=== PATIENT | female | born 1990 | race African-American/Black ===

== ENCOUNTER 2016-12-31 12:19 | Emergency (ER) | payer MEDICAID ==
[~2016-12-31] VITALS: Ht 170.2 cm; Wt 83.6 kg
[~2016-12-31 12:19] MED LIST: DICL50TA2 PO; METH750T2 PO
[2016-12-31 12:24] VITALS: BP 126/76; PULSE 80; RESP 14; TEMP 98; O2SAT 100
--- NOTE | 2016-12-31 13:57 | PD ---
HPI Chief Complaint: Medical Clearance Time Seen by Provider: 13:56 Travel History International Travel<30 days: No Contact w/Intl Traveler<30days: No Traveled to known affect area: No History of Present Illness HPI 26-year-old female presents to the emergency department requesting a test. Last menstrual period was November 26. She has no other medical complaints. She denies fever, chills, nausea, vomiting. Denies chest pain, shortness breath, abdominal pain, change in urine or stool. She denies vaginal discharge, odor, itch, lesions. No known allergies. No other modifying factors or associated signs and symptoms. History Past Medical Histgory LMP: 11/29/2016 Menopausal: No Social History Alcohol Use: No Tobacco Use: Yes Allergies-Medications (Allergen,Severity, Reaction): Coded Allergies: No Known Allergies (Verified , 08/04/15) Reported Meds & Prescriptions Reported Meds & Active Scripts Active Robaxin (Methocarbamol) 750 Mg Tab 750 Mg PO TID PRN Diclofenac Potassium 50 mg (Diclofenac Potassium) 50 Mg Tab 1 Tab PO Q8 PRN 7 Days Review of Systems Except as stated in HPI: all other systems reviewed are Neg Physical Exam Narrative GENERAL: Well-nourished, well-developed female patient, in no acute distress SKIN: Warm and dry. HEAD: Atraumatic. Normocephalic. EYES: Pupils equal and round. No scleral icterus. No injection or drainage. ENT: Mucosa pink and moist. Airway patent. NECK: Trachea midline. CARDIOVASCULAR: Regular rate. RESPIRATORY: No accessory muscle use. GASTROINTESTINAL: Rounded. MUSCULOSKELETAL: No obvious deformities. No clubbing. No cyanosis. No edema. NEUROLOGICAL: Awake and alert. Oriented 3. No obvious cranial nerve deficits. Motor grossly within normal limits. Normal speech. PSYCHIATRIC: Appropriate mood and affect; insight and judgment normal. Data Data Last Documented VS Vital Signs Date Time Temp Pulse Resp B/P Pulse Ox O2 Delivery O2 Flow Rate FiO2 12/31/16 12:24 98.0 80 14 126/76 100 MDM Medical Screen Exam Complete: Yes Emergency Medical Condition: No Differential Diagnosis Medical clearance, , malingering Narrative Course 26-year-old female requesting test. Her last menstrual period was November 26. Vital signs are stable and the patient is stable for outpatient follow-up and treatment. The patient has no urgent or emergent medical complaints. There is no emergent or urgent medical need at this time. I instructed the patient to follow up with their primary care provider. A medical screening exam was performed: At the time of evaluation the presenting medical condition was determined not to be of an emergent nature. The patient was given the option of receiving additional care, but declined. Patient was given options for additional community resources from which to obtain care. The Patient Has Been advised to seek medical attention for their presenting complaint. The patient has been advised to return to the ER at any time if an emergent condition develops. Primary Impression: Encounter for medical screening examination Condition: Stable Cassandra Edwards Dec 31, 2016 13:57
== END 2016-12-31 20:44 | disposition left against medical advice (07) ==
LOC: NED 12:19 → NEPB 20:44
DX: Z00.00 Encounter for general adult medical examination without abnormal findings (principal)
CPT/HCPCS: 99281

== ENCOUNTER 2017-03-17 14:22 | Emergency (ER) | payer MEDICAID ==
[~2017-03-17] VITALS: Ht 170.2 cm; Wt 82.0 kg
[2017-03-17 14:33] VITALS: BP 130/85; PULSE 88; RESP 16; TEMP 98.6; O2SAT 98
--- NOTE | 2017-03-17 14:34 | PD ---
Physical Exam Date Seen by Provider: March 17, 2017 Time Seen by Provider: 14:33 Narrative 26 year old female present to the emergency department for evaluation of laceration to the left left 5th finger that occurred just prior to arrival. Patient cut her finger with her ring. No loss of ROM. Patient states tetanus is up to date. Vital signs reviewed. Patient waiting bed placement. [facility] Supervised Visit with HUGO: Steff Bourne March 17, 2017 14:34
--- NOTE | 2017-03-17 14:48 | PD ---
HPI Chief Complaint: Laceration/Skin Injury Time Seen by Provider: 14:46 Travel History International Travel<30 days: No Contact w/Intl Traveler<30days: No Traveled to known affect area: No History of Present Illness HPI 26-year-old female presents to the emergency Department with complaint of a laceration to the base of her left fifth digit from an accessory ring that cut into her finger today. She is up-to-date in attendance laxation. Denies paresthesias loss of sensation, decreased range motion to the affected finger. Denies fever, vomiting. Has not taken any medications to alleviate her symptoms. Has applied pressure to control bleeding. No known allergies. Has no other medical complaints. No other modifying factors or associated signs and symptoms. PFSH Past Medical History Medical History: Denies Significant Hx Blood Disorders: No Cirrhosis: No Diabetes: No Diminished Hearing: No GERD: No Hypertension: Yes Reproductive: No Immunizations Current: No Tetanus Vaccination: < 5 Years ?: Not LMP: 02/24/17 Menopausal: No : 2 Para: 2 Miscarriage: 0 : 0 Ectopic : No Ovarian Cysts: No Dilation and Curettage (D&C): No Tubal Ligation: No Past Surgical History Section: Yes (2 x) Cholecystectomy: Yes Other Surgery: Yes (left arm) Social History Alcohol Use: No Tobacco Use: Yes Substance Use: No Allergies-Medications (Allergen,Severity, Reaction): Coded Allergies: No Known Allergies (Verified , 03/17/17) Reported Meds & Prescriptions Reported Meds & Active Scripts Active No Active Prescriptions or Reported Medications Review of Systems Except as stated in HPI: all other systems reviewed are Neg Physical Exam Narrative GENERAL: Well-nourished, well-developed female patient, in no acute distress SKIN: Warm and dry. Approximately 1 cm laceration to the proximal, Posterior aspect of left fifth digit; without erythema, edema,;with minimal amount of bright red drainage. Fingers with full range of motion and sensory intact and without erythema or edema; with good opposition. HEAD: Atraumatic. Normocephalic. EYES: Pupils equal and round. No scleral icterus. No injection or drainage. ENT: Mucosa pink and moist. Airway patent. NECK: Trachea midline. CARDIOVASCULAR: Regular rate. RESPIRATORY: No accessory muscle use. GASTROINTESTINAL: Rounded. MUSCULOSKELETAL: No obvious deformities. No clubbing. No cyanosis. No edema. NEUROLOGICAL: Awake and alert. Oriented 3. No obvious cranial nerve deficits. Motor grossly within normal limits. Normal speech. PSYCHIATRIC: Appropriate mood and affect; insight and judgment normal. Data Data Last Documented VS Vital Signs Date Time Temp Pulse Resp B/P Pulse Ox O2 Delivery O2 Flow Rate FiO2 03/17/17 14:33 98.6 88 16 130/85 98 MDM Medical Decision Making Medical Screen Exam Complete: Yes Emergency Medical Condition: Yes Medical Record Reviewed: Yes Differential Diagnosis Finger laceration, contusion, abrasion Narrative Course 26-year-old female with laceration to the posterior, proximal aspect of the left fifth digit. Up-to-date on tetanus vaccination. See my procedure note laceration repair. Patient verbalizes understanding and agreement with treatment plan. Patient is medically cleared and stable for discharge. Discussed reasons to return to the emergency department. Instructed patient to follow up with primary care provider. Patient agrees with treatment plan. The patients vital signs are stable and the patient is stable for outpatient follow- up and treatment. Patient discharged home, stable and in no acute distress. Procedures Procedure Narrative LACERATION LOCATION: Posterior, proximal aspect of left fifth digit LENGTH: 1 cm REPAIR: The area of the laceration was prepped with sterile water and sterilely draped. The wound was copiously irrigated and explored without evidence of foreign body, tendon injury or neurovascular injury. The wound was closed using Dermabond. This was a single layer repair. A sterile dressing was applied. The patient was advised to keep the dressing clean and dry. Patient tolerated the procedure well. Diagnosis Primary Impression: Finger laceration Qualified Code: S61.219A - Finger laceration, initial encounter Referrals: Primary Care Physician Patient Instructions: Finger Laceration (ED), General Instructions Departure Forms: Tests/Procedures, Work Release Enter return to work date: March 18, 2017 Additional Instructions: Keep area clean and dry Ibuprofen or Tylenol as directed and as needed for pain and inflammation Follow-up with primary care provider Return to the emergency department immediately with worsening of symptoms Med/Other Pt SpecificInfo: Prescription(s) given, No Change to Meds, No Meds Exist/No RX given Scripts No Active Prescriptions or Reported Meds Disposition: DISCHARGE HOME Condition: Stable Cassandra Edwards March 17, 2017 14:48
== END 2017-03-17 15:01 | disposition home or self-care (01) ==
LOC: NEPK 14:22
DX: S61.217A Laceration without foreign body of left little finger without damage to nail, initial encounter (principal); W45.8XXA Other foreign body or object entering through skin, initial encounter
CPT/HCPCS: 12001